=== PATIENT | female | born 1945 | race American Indian/Alaskan Native ===

== ENCOUNTER 2016-08-23 11:01 | Emergency (ER) | payer MEDICARE, OTHER ==
[2016-08-23] MEDS ORDERED: NORCO 5/325 PO ONE (11:42)
--- NOTE | 2016-08-23 11:46 | Emergency Department Report ---
ED Lower Extremity HPI - General Chief Complaint: Extremity Injury, Lower Stated Complaint: RIGHT LEG PAIN Time Seen by Provider: 08/23/16 11:30 Source: patient, family Mode of arrival: Wheelchair Limitations: No Limitations - History of Present Illness Initial Comments: Patient here complaining in that she went to the bathroom last night and went to lay down and bends her right leg up, she stated that she felt a sharp pain behind her right knee. The pain is localized to the knee but she feels like it radiating down her right leg. She says it's hard for her to straighten out her leg and knee pain. She is able to weight-bear but she said it is very painful pain is 10 out of 10. Denies any injury. Patient has a history of glaucoma, hypertension and diabetes. Denies any redness or swelling to the knee. No over -the-counter medication taken. Denies any pain in her thigh or hip. Denies any swelling to her legs. Denies long distance travel car or airplane long distance. Denies any history of blood clots personal or in her family. Denies any shortness of breath or chest pain. Denies taking hormones. MD Complaint: other (right knee pain) -: Last night Injury: Knee: Right (pain with movement) Type of Injury: unknown Place: home Severity: severe Severity scale (0 -10): 10 Improves With: nothing Context: walking Associated Symptoms: able to partially bear weight. denies: snap/pop sensation , swelling, numbness, tingling, unable to bear weight, ambulatory Treatments Prior to Arrival: other (none use) - Related Data Home Medications Medication Instructions Recorded Confirmed Last Taken Bisoprolol/Hctz [Ziac 10-6.25] 10 04/03/13 04/03/13 04/02/13 Brimonidine Tartrate [Alphagan P 1 drop OU Q8HR 04/03/13 04/03/13 Unknown 0.1%] Dorzolamide HCl/Timolol Maleat 1 drop OP BID 04/03/13 04/03/13 Unknown [Dorzolamide-Timolol 22.3/6.8 mg/ml] Lisinopril [Zestril] 40 mg PO QDAY 04/03/13 04/03/13 04/02/13 Previous Rx's Medication Instructions Recorded Last Taken Type Acetaminophen/Codeine [Tylenol #3] 1 tab PO Q6H PRN #15 tab 04/03/13 Unknown Rx Naproxen Sodium (Nf) [Anaprox DS] 550 mg PO BID PRN #14 tablet 04/03/13 Unknown Rx HYDROcodone/APAP 5-325 [[place] 1 each PO QHS PRN #6 tablet 08/23/16 Unknown Rx 5/325] Allergies Allergy/AdvReac Type Severity Reaction Status Date / Time No Known Allergies Allergy Unverified 04/03/13 09:15 ED Review of Systems ROS: Stated complaint: LEFT LEG PAIN Other details as noted in HPI Comment: All other systems reviewed and negative Constitutional: denies: chills Eyes: denies: eye pain, vision change Respiratory: no symptoms reported Cardiovascular: denies: chest pain, palpitations, edema, syncope Gastrointestinal: denies: abdominal pain, nausea, vomiting Musculoskeletal: arthralgia. denies: back pain, joint swelling, myalgia Skin: denies: rash Neurological: abnormal gait (abnormal gait due to right knee.). denies: headache, numbness, paresthesias, confusion, vertigo ED Past Medical Hx - Past Medical History Previous Medical History?: Yes Hx Hypertension: Yes Additional medical history: Glaucoma - Surgical History Past Surgical History?: No - Family History Family history: diabetes, hypertension - Social History Smoking Status: Never Smoker Substance Use Type: None - Medications Home Medications: Home Medications Medication Instructions Recorded Confirmed Last Taken Type Acetaminophen/Codeine [Tylenol #3] 1 tab PO Q6H PRN #15 tab 04/03/13 Unknown Rx Bisoprolol/Hctz [Ziac 10-6.25] 10 04/03/13 04/03/13 04/02/13 History Brimonidine Tartrate [Alphagan P 1 drop OU Q8HR 04/03/13 04/03/13 Unknown History 0.1%] Dorzolamide HCl/Timolol Maleat 1 drop OP BID 04/03/13 04/03/13 Unknown History [Dorzolamide-Timolol 22.3/6.8 mg/ml] Lisinopril [Zestril] 40 mg PO QDAY 04/03/13 04/03/13 04/02/13 History Naproxen Sodium (Nf) [Anaprox DS] 550 mg PO BID PRN #14 tablet 04/03/13 Unknown Rx HYDROcodone/APAP 5-325 [[place] 1 each PO QHS PRN #6 tablet 08/23/16 Unknown Rx 5/325] ED Physical Exam - General Limitations: No Limitations General appearance: alert, in no apparent distress - Head Head exam: Present: atraumatic, normocephalic, normal inspection - Eye Eye exam: Present: normal appearance, PERRL, EOMI Pupils: Present: normal accommodation - Neck Neck exam: Present: normal inspection, full ROM. Absent: tenderness, meningismus, lymphadenopathy - Respiratory Respiratory exam: Present: normal lung sounds bilaterally. Absent: respiratory distress, chest wall tenderness - Cardiovascular Cardiovascular Exam: Present: regular rate, normal rhythm, normal heart sounds - GI/Abdominal GI/Abdominal exam: Present: soft, normal bowel sounds. Absent: distended, tenderness, guarding, rebound, rigid - Extremities Exam Extremities exam: Present: normal inspection, normal capillary refill. Absent: full ROM (limited range of motion to right knee due to pain), tenderness, pedal edema, joint swelling, calf tenderness - Expanded Lower Extremity Exam Right Hip exam: Present: normal inspection, full ROM, pelvic stability. Absent: tenderness, swelling, abrasion, laceration, ecchymosis, deformity, crepidus, dislocation, erythema, external rotation, internal rotation, shortening Upper Leg exam: Present: normal inspection, full ROM. Absent: tenderness, swelling, abrasion, laceration, ecchymosis, deformity, crepidus, dislocation, erythema Knee exam: Present: normal inspection, tenderness, crepidus, effusion, full knee extension (she is able to fully extend her knee but has significant pain). Absent: full ROM (patient with limited range of motion to right knee she has pain with flexion and extension), swelling, abrasion, laceration, ecchymosis, deformity, dislocation, erythema, pain w/ pronation/supination, posterior draw sign Lower Leg exam: Present: normal inspection. Absent: full ROM, swelling, abrasion, laceration, ecchymosis, deformity, crepidus, dislocation, erythema, palpable cord, Wesly's sign Ankle exam: Present: normal inspection, full ROM. Absent: tenderness, swelling , abrasion, laceration, ecchymosis, deformity, crepidus, dislocation, erythema Foot/Toe exam: Present: normal inspection, full ROM, tenderness. Absent: swelling, abrasion, laceration, ecchymosis, deformity, crepidus, dislocation, erythema, amputation, puncture wound, foreign body, calcaneal tenderness, tenderness at base of 5th metatarsal, nail avulsion, subungual hematoma Neuro vascular tendon exam: Present: no vascular compromise. Absent: pulse deficit, abnormal cap refill, motor deficit, sensory deficit, tendon deficit, extremity cold to touch, pallor, abnormal 2-point discrimination, decreased fine /light touch, foot drop, peroneal nerve deficit, significant pain with passive ROM of distal joint Gait: Positive: observed and limited by pain (patient able to weight-bear but has pain.) - Back Exam Back exam: Present: normal inspection, full ROM. Absent: tenderness, CVA tenderness (R), CVA tenderness (L), muscle spasm, paraspinal tenderness, vertebral tenderness, rash noted - Neurological Exam Neurological exam: Present: alert, oriented X3, abnormal gait (abnormal gait due to right knee pain), reflexes normal - Psychiatric Psychiatric exam: Present: normal affect, normal mood - Skin Skin exam: Present: warm, dry, intact, normal color. Absent: rash ED Course Vital Signs 08/23/16 08/23/16 11:08 11:48 Temperature 98.3 F Pulse Rate 65 Respiratory 18 18 Rate Blood Pressure 163/62 O2 Sat by Pulse 99 Oximetry - Reevaluation(s) Reevaluation #1: 08/23/16 11:53 Patient given Canton 5/325 mg 2 tablets in emergency room and awaiting x-ray Reevaluation #2: 08/23/16 12:40 Patient expressed pain relief after Canton. Reevaluation #3: 08/23/16 13:24 Blood sugar at 124, Dr. Fields saw patient and his left knee and it was decided the patient can follow up with her primary care physician who is Dr. Lawson. No need for immobilization. 08/23/16 13:25 Reevaluation #4: 08/23/16 13:25 Patient given Decadron 10 mg IM in emergency room ED Lower Extremity MDM - Lab Data POC blood sugar at 124 - Radiology Data Radiology results: report reviewed X-ray report of right knee shows large right suprapatellar effusion without acute bony abnormalities. - Medical Decision Making ED course: She presents to emergency room complaining of knee pain that started last night. She reports shows the patient has suprapatellar effusion to right knee. No fracture or dislocation. Blood glucose 124. I collaborated with Dr. Fields who saw and assessed patient and decided that patient can be discharged home to follow up with her primary care physician who is Dr. Lawson. There is no need for any immobilization. This was discussed with patient and her family and she is in agreement. Patient was given Canton 5/325 one tablet in emergency room which relieved her pain. She was also given Decadron 10 mg IM. Discharged home with prescription for Canton and to follow-up with her primary care physician, Critical care attestation.: If time is entered above; I have spent that time in minutes in the direct care of this critically ill patient, excluding procedure time. ED Disposition Clinical Impression: Arthralgia of right knee, Effusion, right knee Disposition: DISCHARGED TO HOME OR SELFCARE Is pt being admited?: No Does the pt Need Aspirin: No Condition: Stable Instructions: Knee Effusion (ED), Arthralgia (ED), Knee Exercises (GEN) Additional Instructions: followup with primary care physician. Prescriptions: HYDROcodone/APAP 5-325 [Canton 5/325] 1 each PO QHS PRN #6 tablet PRN Reason: Pain, Moderate (4-6) Referrals: GREG LAWSON MD [Primary Care Provider] - 08/26/16 Forms: Work/School Release Form(ED)
--- NOTE | 2016-08-23 12:10 | XRay Report ---
RIGHT KNEE RADIOGRAPHS INDICATION: Right knee pain. Leg stiffness while getting out of bed 1 day ago. Fell 3+ months ago. COMPARISON: None similar. FINDINGS: AP, lateral and oblique right knee radiographs demonstrate grossly intact bony articulation, though lateral positioning suboptimal with patellofemoral joint space not well assessed. No abnormal density projects within the joint space. Large suprapatellar effusion suspected. CONCLUSION: Large right suprapatellar effusion without acute bony abnormality, as described. Please correlate. Thank you for the opportunity to participate in this patient's care.
[2016-08-23] MEDS ORDERED: DECADRON IM STA (13:24)
[2016-08-23 13:43] VITALS: BP 155/55
== END 2016-08-23 13:44 | disposition home or self-care (01) ==
LOC: ED 11:01
DX: M25.561 Pain in right knee (principal); I10 Essential (primary) hypertension; M25.461 Effusion, right knee; E11.9 Type 2 diabetes mellitus without complications
CPT/HCPCS: 73562; 82962; 96372; 99283; J1100

== ENCOUNTER 2017-03-31 14:35 | Outpatient (CLI) | payer OTHER ==
--- NOTE | 2017-03-31 14:59 | XRay Report ---
CHEST 2 VIEWS INDICATION: COPD. COMPARISON: None similar. FINDINGS: PA and lateral chest radiographs demonstrate normal cardiomediastinal silhouette. Clear lungs. Slight aortic knob calcifications. Right hemidiaphragm slightly elevated. Mild thoracic spondylosis. CONCLUSION: No acute chest process, as described. Thank you for the opportunity to participate in this patient's care.
== END 2017-03-31 14:36 | disposition home or self-care (01) ==
LOC: XRAY 14:35
PROVIDERS: ATTEND Internal Medicine
DX: J44.1 Chronic obstructive pulmonary disease with (acute) exacerbation (principal); I70.0 Atherosclerosis of aorta; J98.6 Disorders of diaphragm; M47.894 Other spondylosis, thoracic region
CPT/HCPCS: 71020

== ENCOUNTER 2018-03-06 13:48 | Outpatient (CLI) | payer OTHER ==
--- NOTE | 2018-03-06 19:26 | XRay Report ---
FINAL REPORT EXAM: XR SPINE LUMBOSACRAL 2-3V HISTORY: ACCIDENTAL FALL TECHNIQUE: AP, lateral and coned-down views of lumbar spine. PRIORS: None. FINDINGS: Mild superior endplate concavity L1 level, nonspecific. Very mild anterolisthesis in L4-5 level probably degenerative. No other loss of height or gross malalignment of lumbar vertebral bodies. No obvious osseous destruction. Diffuse facet arthrosis throughout majority of lumbar spine. Lumbar disc spaces maintained. Paraspinal soft tissues grossly unremarkable. IMPRESSION: 1. Mild compression deformity in L1 superior endplate, age-indeterminate. 2. No other acute osseous abnormality. 3. Degenerative changes.
== END 2018-03-06 13:49 | disposition home or self-care (01) ==
LOC: XRAY 13:48
PROVIDERS: ATTEND Internal Medicine
DX: M47.896 Other spondylosis, lumbar region (principal); M43.8X6 Other specified deforming dorsopathies, lumbar region; I10 Essential (primary) hypertension; W19.XXXA Unspecified fall, initial encounter
CPT/HCPCS: 72100

== ENCOUNTER 2021-08-17 14:44 | Inpatient (IN) | payer MEDICARE, OTHER ==
[2021-08-17 16:41] LABS: Basophils % (Auto) 0.2 % (0.0-1.8); Eosinophils % (Auto) 0.1 % (0.0-4.3); Hematocrit 42.1 % (30.3-42.9); Hemoglobin 14.5 gm/dl (10.1-14.3); Lymphocytes # (Auto) 2.4 K/mm3 (1.2-5.4); Lymphocytes % (Auto) 12.7 % (13.4-35.0); Mean Corpuscular HGB Conc 34 % (30-34); Mean Corpuscular Volume 96 fl (79-97); Monocytes # (Auto) 1.1 K/mm3 (0.0-0.8); Monocytes % (Auto) 5.7 % (0.0-7.3); Platelet Count 422 K/mm3 (140-440); Red Blood Count 4.38 M/mm3 (3.65-5.03); Red Cell Distribution Width 14.1 % (13.2-15.2)
--- NOTE | 2021-08-17 16:51 | Event Note ---
ED Screening Note ED Screening Note: [id number] presents to the ED with rectal bleeding x1 day. She denies any chest pain or shortness of breath at present. History of diabetes and asthma. Full medical examination to follow. This initial assessment/diagnostic orders/clinical plan/treatment(s) is/are subject to change based on patients health status, clinical progression and re- assessment by fellow clinical providers in the ED. Further treatment and workup at subsequent clinical providers discretion. Patient/guardian urged not to elope from the ED as their condition may be serious if not clinically assessed and managed. Initial orders include: labs work
[2021-08-17 17:02] LABS: Alanine Aminotransferase 9 units/L (7-56); Albumin 3.8 g/dL (3.9-5); BUN/Creatinine Ratio 23; Blood Urea Nitrogen 18 mg/dL (7-17); Hemolysis Index 6
[2021-08-17 17:06] LABS: INR 1.02 (0.87-1.13); Partial Thromboplastin Time 26.8 Sec. (24.2-36.6)
[2021-08-17] MEDS ORDERED: SODIUM CHLORIDE 0.9% 1000 ML 1,000 ML IV ONE (17:36)
--- NOTE | 2021-08-17 17:41 | Emergency Department Report ---
HPI - General Chief Complaint: GI Bleed Time Seen by Provider: 08/17/21 17:25 - HPI HPI: MSE 5 The patient is a 76-year-old female present with a chief complaint of rectal bleeding. Patient states her symptoms began last night when she developed diaph oresis and lower abdominal pain described as "gas pain." The patient's she went to the bathroom and thought she was having diarrhea but realized soon it was bright red blood. Patient states she has had 3-4 episodes of bloody stools since yesterday. Patient complains of intermittent lower abdominal pain. Patient states she had nausea yesterday but has never had any episodes of vomiting. Patient states she had episodes of feeling dizzy and weak as well. ED Past Medical Hx - Past Medical History Previous Medical History?: Yes Hx Hypertension: Yes Hx Diabetes: Yes Hx Asthma: Yes Additional medical history: Glaucoma - Surgical History Past Surgical History?: No - Family History Family history: no significant - Social History Smoking Status: Never Smoker Substance Use Type: None - Medications Home Medications: Home Medications Medication Instructions Recorded Confirmed Last Taken Type Acetaminophen/Codeine [Tylenol #3] 1 tab PO Q6H PRN #15 tab 04/03/13 Unknown Rx Bisoprolol/Hctz [Ziac 10-6.25] 10 04/03/13 04/03/13 04/02/13 History Brimonidine Tartrate [Alphagan P 1 drop OU Q8HR 04/03/13 04/03/13 Unknown History 0.1%] Dorzolamide HCl/Timolol Maleat 1 drop OP BID 04/03/13 04/03/13 Unknown History [Dorzolamide-Timolol 22.3/6.8 mg/ml] Naproxen Sodium (Nf) [Anaprox DS] 550 mg PO BID PRN #14 tablet 04/03/13 Unknown Rx lisinopriL [Zestril] 40 mg PO QDAY 04/03/13 04/03/13 04/02/13 History HYDROcodone/APAP 5-325 [[place] 1 each PO QHS PRN #6 tablet 08/23/16 Unknown Rx 5/325] ED Review of Systems ROS: Stated complaint: BLOODY STOOL Other details as noted in HPI Constitutional: weakness Eyes: denies: eye pain ENT: denies: throat pain Respiratory: no symptoms reported Cardiovascular: denies: chest pain Endocrine: no symptoms reported Gastrointestinal: abdominal pain, nausea, hematochezia. denies: vomiting, hematemesis Genitourinary: denies: dysuria Musculoskeletal: denies: back pain Neurological: denies: headache Physical Exam - Physical Exam Vital Signs: Vital Signs 08/17/21 14:55 Temperature 98.2 F Pulse Rate 73 Respiratory 16 Rate Blood Pressure 143/70 O2 Sat by Pulse 97 Oximetry Physical Exam: GENERAL: The patient is well-developed well-nourished female lying on stretcher not appearing to be in acute distress. [] HEENT: Normocephalic. Atraumatic. Extraocular motions are intact. Patient has moist mucous membranes. NECK: Supple. Trachea midline CHEST/LUNGS: Clear to auscultation. There is no respiratory distress noted. HEART/CARDIOVASCULAR: Regular. There is no tachycardia. There is no gallop rub or murmur. ABDOMEN: Abdomen is soft, with tenderness to palpation in the suprapubic and left upper quadrant region. Patient has normal bowel sounds. There is no abdominal distention. SKIN: There is no rash. There is no edema. There is no diaphoresis. NEURO: The patient is awake, alert, and oriented. The patient is cooperative. The patient has no focal neurologic deficits. The patient has normal speech MUSCULOSKELETAL: There is no evidence of acute injury. ED Course Vital Signs 08/17/21 14:55 Temperature 98.2 F Pulse Rate 73 Respiratory 16 Rate Blood Pressure 143/70 O2 Sat by Pulse 97 Oximetry - Consultations Consultation #1: 08/17/21 20:31 GI paged Case discussed with Dr. Astudillo-recommends admitting the patient to the hospital for observation with a clear liquid diet if there is no vomiting. Recommends Zosyn and states if patient does well may possibly be discharged tomorrow and switched over to Augmentin as an outpatient. ED Medical Decision Making - Lab Data Result diagrams: 08/17/21 16:24 08/17/21 16:24 Laboratory Tests 08/17/21 08/17/21 08/17/21 16:22 16:22 16:22 WBC RBC Hgb Hct MCV MCH MCHC RDW Plt Count Lymph % (Auto) Carbon % (Auto) Eos % (Auto) Baso % (Auto) Lymph # (Auto) Carbon # (Auto) Eos # (Auto) Baso # (Auto) Seg Neutrophils % Seg Neutrophils # PT 14.5 INR 1.02 APTT 26.8 Sodium Potassium Chloride Carbon Dioxide Anion Gap BUN Creatinine Estimated GFR BUN/Creatinine Ratio Glucose Calcium Total Bilirubin AST ALT Alkaline Phosphatase Total Protein Albumin Albumin/Globulin Ratio Lipase 27 Blood Type B POSITIVE Antibody Screen Negative 08/17/21 08/17/21 16:24 16:24 WBC 19.1 H RBC 4.38 Hgb 14.5 H Hct 42.1 MCV 96 MCH 33 H MCHC 34 RDW 14.1 Plt Count 422 Lymph % (Auto) 12.7 L Carbon % (Auto) 5.7 Eos % (Auto) 0.1 Baso % (Auto) 0.2 Lymph # (Auto) 2.4 Carbon # (Auto) 1.1 H Eos # (Auto) 0.0 Baso # (Auto) 0.0 Seg Neutrophils % 81.3 H Seg Neutrophils # 15.5 H PT INR APTT Sodium 138 Potassium 4.4 Chloride 97.4 L Carbon Dioxide 24 Anion Gap 21 BUN 18 H Creatinine 0.8 Estimated GFR > 60 BUN/Creatinine Ratio 23 Glucose 211 H Calcium 10.0 Total Bilirubin 0.60 AST 18 ALT 9 Alkaline Phosphatase 110 Total Protein 7.8 Albumin 3.8 L Albumin/Globulin Ratio 1.0 Lipase Blood Type Antibody Screen - Radiology Data Radiology results: report reviewed (CT abdomen pelvis), image reviewed (CT abdomen pelvis) [place] [id number] Cat Scan Report Signed Patient: AIYANA WRIGHT MR#: [id number] : 1945 Acct:[id number] Age/Sex: 76 / F ADM Date: 08/17/21 Loc: ED Attending Dr: Ordering Physician: STERLING GUTHRIE MD Date of Service: 08/17/21 Procedure(s): CT angio abdomen Accession Number(s): [id number] cc: STERLING GUTHRIE MD CTA ABDOMEN AND PELVIS WITHOUT AND WITH IV CONTRAST INDICATION: Lower and left-sided abdominal pain, hematochezia. TECHNIQUE: Axial CT images were obtained through the abdomen and pelvis before and after after injection of 100 cc Omnipaque 350 IV contrast. 3 plane MIP reconstructions were produced. All CT scans at this location are performed using CT dose reduction for ALARA by means of automated exposure control. COMPARISON: None available. FINDINGS: Motion artifact limits portions of the study. VASCULAR FINDINGS: AORTA: There is mild generalized nonobstructive atherosclerosis. No other significant abnormality. CELIAC TRUNK: No significant abnormality. SUPERIOR MESENTERIC ARTERY: No significant abnormality. RENAL ARTERIES: No significant abnormality. INFERIOR MESENTERIC ARTERY: No significant abnormality. RIGHT ILIAC ARTERIES: There is mild generalized nonobstructive atherosclerosis without other significant abnormalities. LEFT ILIAC ARTERIES: There is mild nonobstructive left internal iliac atherosclerosis without other significant abnormalities. FEMORAL ARTERIES: Mild nonobstructive right common femoral atherosclerosis is seen without other significant abnormalities. NONTARGET STRUCTURES: ABDOMEN: Moderate thickening is seen from the splenic flexure through the sigmoid colon with mild/moderate fat stranding seen along the splenic flexure and descending colon, most notable along the splenic flexure. No active contrast extravasation is seen along the GI tract. No other significant abnormalities. PELVIS: As above. Trace free fluid is seen along the pelvis. No other significant abnormality. SKELETAL: No acute findings. There are moderate degenerative changes throughout the spine. ADDITIONAL FINDINGS: None. IMPRESSION: 1. No CT radiographic evidence of an active GI bleed. 2. Uncomplicated acute colitis as above. 3. Additional findings as above. Signer Name: Harsha Liao MD Signed: 08/17/2021 8:14 PM Workstation Name: [id number] Transcribed By: [place] Dictated By: Harsha Liao MD Electronically Authenticated By: Harsha Liao MD Signed Date/Time: 08/17/212013 - Differential Diagnosis Diverticulosis, diverticulitis, colonic mass Critical care attestation.: If time is entered above; I have spent that time in minutes in the direct care of this critically ill patient, excluding procedure time. ED Disposition Clinical Impression: Acute colitis, GI bleed, Acute abdominal pain, Leukocytosis Disposition: ADMITTED INPATIENT Is pt being admited?: Yes Does the pt Need Aspirin: No Condition: Fair Referrals: PRIMARY CARE, [Primary Care Provider] - 3-5 Days Forms: Accompanied Note Time of Disposition: 21:10 (Hospitalist notified (Dr. Pereyra))
--- NOTE | 2021-08-17 20:18 | Cat Scan Report ---
CTA ABDOMEN AND PELVIS WITHOUT AND WITH IV CONTRAST INDICATION: Lower and left-sided abdominal pain, hematochezia. TECHNIQUE: Axial CT images were obtained through the abdomen and pelvis before and after after injection of 100 cc Omnipaque 350 IV contrast. 3 plane MIP reconstructions were produced. All CT scans at this [facility] are performed using CT dose reduction for ALARA by means of automated exposure control. COMPARISON: None available. FINDINGS: Motion artifact limits portions of the study. VASCULAR FINDINGS: AORTA: There is mild generalized nonobstructive atherosclerosis. No other significant abnormality. CELIAC TRUNK: No significant abnormality. SUPERIOR MESENTERIC ARTERY: No significant abnormality. RENAL ARTERIES: No significant abnormality. INFERIOR MESENTERIC ARTERY: No significant abnormality. RIGHT ILIAC ARTERIES: There is mild generalized nonobstructive atherosclerosis without other signific ant abnormalities. LEFT ILIAC ARTERIES: There is mild nonobstructive left internal iliac atherosclerosis without other s ignificant abnormalities. FEMORAL ARTERIES: Mild nonobstructive right common femoral atherosclerosis is seen without other sign ificant abnormalities. NONTARGET STRUCTURES: ABDOMEN: Moderate thickening is seen from the splenic flexure through the sigmoid colon with mild/mod erate fat stranding seen along the splenic flexure and descending colon, most notable along the splen ic flexure. No active contrast extravasation is seen along the GI tract. No other significant abnorma lities. PELVIS: As above. Trace free fluid is seen along the pelvis. No other significant abnormality. SKELETAL: No acute findings. There are moderate degenerative changes throughout the spine. ADDITIONAL FINDINGS: None. IMPRESSION: 1. No CT radiographic evidence of an active GI bleed. 2. Uncomplicated acute colitis as above. 3. Additional findings as above. Signer Name: Harsha Liao MD Signed: 08/17/2021 8:14 PM Workstation Name: [id number]
[2021-08-17] MEDS ORDERED: PIPERACIL/TAZOBACTA 4.5/NS 100 4.5 GM/100 ML VIAL IV ONE (21:21)
[2021-08-17] MEDS ORDERED: DEXTROSE 50% IN WATER (25GM) 50 ML SYRINGE IV PRN (21:23)
[2021-08-17] MEDS ORDERED: ACETAMINOPHEN 325 MG TAB PO PRN (21:23)
[2021-08-17] MEDS ORDERED: HYDROmorphone 1 MG/1 ML INJ IV PRN (21:23)
[2021-08-17] MEDS ORDERED: ONDANSETRON 4 MG/2 ML INJ IV PRN (21:23)
[2021-08-17] MEDS ORDERED: MORPHINE 2 MG/1 ML INJ IV PRN (21:23)
[2021-08-17] MEDS ORDERED: SODIUM CHLORIDE 0.9% 1000 ML 1,000 ML IV SCH (21:30)
--- NOTE | 2021-08-17 21:31 | History and Physical Report ---
History of Present Illness Date of examination: 08/17/21 Date of admission: 08/17/21 Chief complaint: Rectal bleeding History of present illness: 76-year-old female present with a chief complaint of rectal bleeding. Patient states her symptoms began last night when she developed diaphoresis and lower abdominal pain described as "gas pain." The patient's she went to the bathroom and thought she was having diarrhea but realized soon it was bright red blood. Patient states she has had 3-4 episodes of bloody stools since yesterday. Patient complains of intermittent lower abdominal pain. Patient states she had nausea yesterday but has never had any episodes of vomiting. Patient states she had episodes of feeling dizzy and weak as well. In the emergency room patient is found to have WBC of 19.1, hemoglobin 14.[address] abdomen shows no CT radiographic evidence of active GI bleed. Uncomplicated acute colitis. Subsequently Case was discussed with GI and put the patient on Protonix and antibiotic. GI will see the patient in the morning Past History Past Medical History: diabetes, hypertension, other (Asthma, glaucoma) Social history: other (Non-smoker) Family history: other (Not significant) Medications and Allergies Allergies Allergy/AdvReac Type Severity Reaction Status Date / Time No Known Allergies Allergy Verified 08/17/21 14:57 Home Medications Medication Instructions Recorded Confirmed Last Taken Type Acetaminophen/Codeine [Tylenol #3] 1 tab PO Q6H PRN #15 tab 04/03/13 Unknown Rx Bisoprolol/Hctz [Ziac 10-6.25] 10 04/03/13 04/03/13 04/02/13 History Brimonidine Tartrate [Alphagan P 1 drop OU Q8HR 04/03/13 04/03/13 Unknown History 0.1%] Dorzolamide HCl/Timolol Maleat 1 drop OP BID 04/03/13 04/03/13 Unknown History [Dorzolamide-Timolol 22.3/6.8 mg/ml] Naproxen Sodium (Nf) [Anaprox DS] 550 mg PO BID PRN #14 tablet 04/03/13 Unknown Rx lisinopriL [Zestril] 40 mg PO QDAY 04/03/13 04/03/13 04/02/13 History HYDROcodone/APAP 5-325 [[place] 1 each PO QHS PRN #6 tablet 08/23/16 Unknown Rx 5/325] Active Meds: Active Medications Piperacillin Sod/Tazobactam Sod (Zosyn/Ns 4.5gm/100ml) 4.5 gm in 100 mls @ 200 mls/hr IV ONCE ONE; Protocol Stop: 08/17/21 21:50 Review of Systems Gastrointestinal: abdominal pain, nausea, diarrhea, BRBPR Exam - Constitutional Vitals: Temp Pulse Resp BP Pulse Ox 98.2 F 73 16 143/70 97 08/17/21 14:55 08/17/21 14:55 08/17/21 14:55 08/17/21 14:55 08/17/21 14:55 General appearance: Present: no acute distress, well-nourished - EENT Eyes: Present: PERRL ENT: hearing intact, clear oral mucosa - Neck Neck: Present: supple, normal ROM - Respiratory Respiratory effort: normal Respiratory: bilateral: CTA - Cardiovascular Heart Sounds: Present: S1 & S2. Absent: rub, click - Extremities Extremities: pulses symmetrical, No edema Peripheral Pulses: within normal limits - Abdominal General gastrointestinal: Present: soft, non-tender, non-distended, normal bowel sounds Female genitourinary: Present: normal - Integumentary Integumentary: Present: clear, warm, dry - Musculoskeletal Musculoskeletal: gait normal, strength equal bilaterally - Psychiatric Psychiatric: appropriate mood/affect, intact judgment & insight - Neurologic Neurologic: CNII-XII intact, moves all extremities Results - Labs CBC & Chem 7: 08/17/21 16:24 08/17/21 16:24 Labs: Laboratory Last Values WBC 19.1 K/mm3 (4.5-11.0) H 08/17/21 16:24 RBC 4.38 M/mm3 (3.65-5.03) 08/17/21 16:24 Hgb 14.5 gm/dl (10.1-14.3) H 08/17/21 16:24 Hct 42.1 % (30.3-42.9) 08/17/21 16:24 MCV 96 fl (79-97) 08/17/21 16:24 MCH 33 pg (28-32) H 08/17/21 16:24 MCHC 34 % (30-34) 08/17/21 16:24 RDW 14.1 % (13.2-15.2) 08/17/21 16:24 Plt Count 422 K/mm3 (140-440) 08/17/21 16:24 Lymph % (Auto) 12.7 % (13.4-35.0) L 08/17/21 16:24 [place] % (Auto) 5.7 % (0.0-7.3) 08/17/21 16:24 Eos % (Auto) 0.1 % (0.0-4.3) 08/17/21 16:24 Baso % (Auto) 0.2 % (0.0-1.8) 08/17/21 16:24 Lymph # (Auto) 2.4 K/mm3 (1.2-5.4) 08/17/21 16:24 [place] # (Auto) 1.1 K/mm3 (0.0-0.8) H 08/17/21 16:24 Eos # (Auto) 0.0 K/mm3 (0.0-0.4) 08/17/21 16:24 Baso # (Auto) 0.0 K/mm3 (0.0-0.1) 08/17/21 16:24 Seg Neutrophils % 81.3 % (40.0-70.0) H 08/17/21 16:24 Seg Neutrophils # 15.5 K/mm3 (1.8-7.7) H 08/17/21 16:24 PT 14.5 Sec. (12.2-14.9) 08/17/21 16: INR 1.02 (0.87-1.13) 08/17/21 16:22 APTT 26.8 Sec. (24.2-36.6) 08/17/21 16:22 Sodium 138 mmol/L (137-145) 08/17/21 16:24 Potassium 4.4 mmol/L (3.6-5.0) 08/17/21 16:24 Chloride 97.4 mmol/L (98-107) L 08/17/21 16:24 Carbon Dioxide 24 mmol/L (22-30) 08/17/21 16:24 Anion Gap 21 mmol/L 08/17/21 16:24 BUN 18 mg/dL (7-17) H 08/17/21 16:24 Creatinine 0.8 mg/dL (0.6-1.2) 08/17/21 16:24 Estimated GFR > 60 ml/min 08/17/21 16:24 BUN/Creatinine Ratio 23 % 08/17/21 16:24 Glucose 211 mg/dL (65-100) H 08/17/21 16:24 Calcium 10.0 mg/dL (8.4-10.2) 08/17/21 16:24 Total Bilirubin 0.60 mg/dL (0.1-1.2) 08/17/21 16:24 AST 18 units/L (5-40) 08/17/21 16:24 ALT 9 units/L (7-56) 08/17/21 16:24 Alkaline Phosphatase 110 units/L (35-129) 08/17/21 16:24 Total Protein 7.8 g/dL (6.3-8.2) 08/17/21 16:24 Albumin 3.8 g/dL (3.9-5) L 08/17/21 16:24 Albumin/Globulin Ratio 1.0 % 08/17/21 16:24 Lipase 27 units/L (13-60) 08/17/21 16:22 Blood Type B POSITIVE 08/17/21 16:22 Antibody Screen Negative 08/17/21 16:22 - Imaging and Cardiology CT scan - abdomen: report reviewed Assessment and Plan VTE prophylaxis?: Mechanical Plan of care discussed with patient/family: Yes - Patient Problems (1) GI bleed Current Visit: Yes Status: Acute Plan to address problem: Admit the patient to the medical floor. NPO. Normal saline at the rate of 100 cc/h. Protonix 40 mg IV every 12 hours. Zosyn 4.5 g IV every 8 hours. Reconsult GI for evaluation. Recheck CBC in the morning (2) Acute colitis Current Visit: Yes Status: Acute Plan to address problem: NPO. Normal saline at the rate of 100 cc/h. Protonix 40 mg IV every 12 hours. Zosyn 4.5 g IV every 8 hours. Reconsult GI for evaluation. Recheck CBC in the morning (3) Diabetes Current Visit: Yes Status: Acute Plan to address problem: Accu-Chek every 6 hours with Humalog moderate dose coverage. Diabetic education (4) Hypertension Current Visit: Yes Status: Acute Plan to address problem: Hydralazine 10 mg IV every 6 hours as needed. We will monitor the blood pressure closely (5) Asthma Current Visit: Yes Status: Acute Plan to address problem: Oxygen via nasal cannula 3 L/min. DuoNeb by nebulizer every 4 hours. Albuterol via nebulizer every 4 hours as needed (6) Acute abdominal pain Current Visit: Yes Status: Acute Plan to address problem: NPO. Normal saline at the rate of 100 cc/h. Protonix 40 mg IV every 12 hours. Morphine 2 mg IV every 4 hours as needed. reconsult GI for evaluation. Recheck CBC in the morning (7) Leukocytosis Current Visit: Yes Status: Acute Plan to address problem: Zosyn 4.5 g IV every 8 hours. Reconsult GI for evaluation. Recheck CBC in the morning (8) DVT prophylaxis Current Visit: Yes Status: Acute Plan to address problem: SCD for DVT prophylaxis. Protonix for GI prophylaxis. Patient is a full code
[2021-08-17] MEDS ORDERED: DEXTROSE 10% *Hypoglycemia IV PRN (21:34)
[2021-08-17] MEDS ORDERED: NON-FORMULARY EACH (Brimonidine Tartrate [Alphagan P 0.1%] 10 ML Drops) OU SCH (22:00)
[2021-08-17] MEDS ORDERED: BRIMONIDINE 0.15% OPHTH SOLN OU SCH (22:00)
[2021-08-17] MEDS ORDERED: PANTOPRAZOLE 40 MG INJ IV SCH (22:00)
[2021-08-18] MEDS ORDERED: INSULIN LISPRO 100 UNIT/ML SUB-Q SCH
[2021-08-18 01:17] VITALS: BP 138/78
[2021-08-18] MEDS ORDERED: PIPERACIL/TAZOBACTA 4.5/NS 100 4.5 GM/100 ML VIAL IV SCH (06:00)
== END 2021-08-18 01:13 | disposition left against medical advice (07) | DRG 379 ==
LOC: ED 14:44 → 3A 21:23
PROVIDERS: ADMIT Hospitalist; ATTEND Hospitalist
DX: K92.2 Gastrointestinal hemorrhage, unspecified (principal); I10 Essential (primary) hypertension; E11.9 Type 2 diabetes mellitus without complications; K52.9 Noninfective gastroenteritis and colitis, unspecified; J45.909 Unspecified asthma, uncomplicated; D72.829 Elevated white blood cell count, unspecified
CPT/HCPCS: 36415; 74175; 80053; 83690; 85025; 85610; 85730; 86850; 86900; 86901; G0378; Q0162; C9113; J2543; J7030; Q9967